=== PATIENT | female | born 1940 | race Caucasian/White ===

== ENCOUNTER 2017-12-24 09:34 | Inpatient (IN) | payer MEDICARE ==
[~2017-12-24] VITALS: Ht 166.4 cm; Wt 74.2 kg
[~2017-12-24 09:34] MED LIST: AMLO5TAB2 PO; ASPI-1012 PO; FLUT1DIS3 IH; FURO20TA4 PO; RANI-248 PO
[2017-12-24 15:25] LABS: BASOPHILS % (AUTO) 1.2 % (0.0-5.0); EOSINOPHILS % (AUTO) 12.9 % (0.0-8.0); HEMATOCRIT 40.4 % (36-48); MEAN CORPUSCULAR HEMOGLOBIN 29.6 pg (27.0-33.0); MEAN CORPUSCULAR VOLUME 86.9 fL (79-99); MONOCYTES % (AUTO) 10.6 % (3.0-13.0); NEUTROPHILS % (AUTO) 52.3 % (40.0-77.0); NUCLEATED RED BLOOD CELLS 0.1 % (0.0-0.19); PLATELET COUNT (AUTO) 316 K/uL (130-400); RED BLOOD CELL COUNT(AUTO) 4.65 MIL/uL (4.00-5.50); RED CELL DISTRIBUTION WIDTH 14.1 % (11.0-15.5); WHITE BLOOD COUNT (AUTO) 6.4 K/uL (4.8-10.8)
[2017-12-24 15:30] VITALS: BP 153/75
[2017-12-24 15:34] LABS: CREATININE 0.7 mg/dL (0.5-1.5)
[2017-12-24 15:37] LABS: INR 1.02 (0.85-1.15); PARTIAL THROMBOPLASTIN TIME 27.2 SEC (26.3-35.5); PROTHROMBIN TIME 10.7 SEC (9.6-11.6)
[2017-12-24] MEDS ORDERED: duo neb IH (16:09)
[2017-12-24] MEDS ORDERED: combivent IH (16:09)
[2017-12-24] MEDS ORDERED: breo ellipta IH (16:09)
[2017-12-24] MEDS ORDERED: LANS30CA53 PO (16:09)
[2017-12-24] MEDS ORDERED: ROSU20TA PO (16:11)
[2017-12-24] MEDS ORDERED: VALS320T16 PO (16:11)
[2017-12-24 16:19] LABS: APPEARANCE,URINE Clear (CLEAR); BILIRUBIN,URINE Negative (NEGATIVE); COLOR,URINE Yellow (YELLOW); GLUCOSE, URINE (UA) Negative (NEGATIVE); KETONES,URINE Negative (NEGATIVE); LEUKOCYTE ESTERASE ,URINE Negative (NEGATIVE); NITRATE,URINE Negative (NEGATIVE); OCCULT BLOOD,URINE Negative (NEGATIVE); PROTEIN,URINE Negative (NEGATIVE)
[2017-12-25] VITALS (25 sets, daily range): BP systolic 97–161; BP diastolic 42–99
[2017-12-25] MEDS ORDERED: WATER FOR INJECTION,STERILE 20 ML VIAL IJ ONE (08:00)
[2017-12-25] MEDS: CEFAZOLIN SODIUM 1 GM VIAL IVP ONE ×2 (08:00→13:34)
[2017-12-25] MEDS ORDERED: LACTATED RINGERS 1000ML 1,000 ML IV ONE (09:58)
[2017-12-25] MEDS ORDERED: CEFAZOLIN SODIUM 1 GM VIAL ONE ×2 (09:58→12:34)
[2017-12-25] MEDS ORDERED: ACETAMINOPHEN EXTRA STRENGTH 500 MG TABLET ONE (11:08)
[2017-12-25] MEDS ORDERED: CELECOXIB 200 MG CAP ONE (11:08)
[2017-12-25] MEDS ORDERED: OXYCODONE HCL 10 MG TAB.SR.12H PO ONE (11:08)
[2017-12-25] MEDS ORDERED: ONDANSETRON HCL 4 MG/2 ML VIAL ONE (11:58)
[2017-12-25] MEDS ORDERED: DEXAMETHASONE SOD PHOSPHATE 10MG/ML 1ML VIAL ONE (11:58)
[2017-12-25] MEDS ORDERED: LIDOCAINE PF 2% 5ML ABBOJECT ONE (11:58)
[2017-12-25] MEDS ORDERED: GLYCOPYRROLATE 0.2 MG/ML 5 ML VIAL ONE (11:58)
[2017-12-25] MEDS ORDERED: FENTANYL CITRATE PF 50 MCG/1 ML 2ML VIAL ONE ×2 (11:59→14:41)
[2017-12-25] MEDS ORDERED: MIDAZOLAM HCL 1 MG/ML 2ML VIAL ONE (11:59)
[2017-12-25] MEDS ORDERED: PROPOFOL 10 MG/ML 20ML VIAL IV ONE (11:59)
[2017-12-25] MEDS ORDERED: TEMAZEPAM 15 MG CAPSULE PO PRN (15:00)
[2017-12-25] MEDS ORDERED: ONDANSETRON HCL 4 MG/2 ML VIAL IVP PRN (15:00)
[2017-12-25] MEDS: ACETAMINOPHEN EXTRA STRENGTH 500 MG TABLET PO SCH ×2 (15:00→21:51)
[2017-12-25] MEDS ORDERED: DiphenhydrAMINE HCL 50 MG/ML VIAL IVP PRN (15:00)
[2017-12-25] MEDS ORDERED: LIDOCAINE HCL-MPF 1% 2ML VIAL IVP PRN (15:00)
[2017-12-25] MEDS ORDERED: POTASSIUM CHLORIDE 20 MEQ ERTAB PO PRN (15:00)
[2017-12-25] MEDS ORDERED: POTASSIUM CHLORIDE 20MEQ/100ML 100 ML IV PRN (15:00)
[2017-12-25] MEDS ORDERED: FERROUS FUMARATE 324 MG TABLET PO PRN (15:00)
[2017-12-25] MEDS ORDERED: POTASSIUM CHLORIDE 10% ELIXIR 20 MEQ/15 ML UDCUP PO PRN (15:00)
[2017-12-25] MEDS ORDERED: IPRATROPIUM/ALBUTEROL SULFATE 3 ML SOLUTION IH ONE (15:46)
[2017-12-25] MEDS ORDERED: MEPERIDINE-PF 25 MG/ML SYG ONE ×2 (16:04→16:14)
[2017-12-25] MEDS ORDERED: PROMETHAZINE HCL 25 MG/ML 1ML AMPULE IM ONE (16:13)
[2017-12-25] MEDS ORDERED: NALOXONE HCL 0.4 MG/1 ML ML ONE (16:36)
[2017-12-25] MEDS: SODIUM CHLORIDE 0.9% 1000ML 1,000 ML IV SCH ×2 (18:37→23:03)
[2017-12-25] MEDS ORDERED: IPRATROPIUM/ALBUTEROL SULFATE 3 ML SOLUTION IH PRN (18:45)
[2017-12-25] MEDS ORDERED: COMBIVENT IH SCH (18:45)
[2017-12-25] MEDS ORDERED: PANTOPRAZOLE SODIUM 40 MG TABLET.DR PO PRN (18:54)
[2017-12-25] MEDS: KETOROLAC TROMETHAMINE 15MG/ML IV PRN (19:53)
[2017-12-25] MEDS: CEFAZOLIN SODIUM 1 GM VIAL IVP SCH (19:58)
[2017-12-25] MEDS ORDERED: CEFAZOLIN 2GM / 50 ML 50 ML IV SCH (20:00)
[2017-12-25] MEDS: RANITIDINE HCL 15 MG/1 ML PO SCH (21:00)
[2017-12-25] MEDS: ASPIRIN 325 MG TABLET PO SCH (21:31)
[2017-12-25] MEDS: FAMOTIDINE 20MG TAB 20 MG TAB PO SCH (21:31)
[2017-12-25] MEDS: PREGABALIN 25 MG CAP PO SCH (21:31)
[2017-12-25] MEDS: ATORVASTATIN CALCIUM 40 MG TABLET PO SCH (21:31)
[2017-12-25] MEDS: OXYCODONE HCL 5 MG TAB PO PRN (21:49)
[2017-12-26] MEDS: ALBUTEROL SULFATE 0.083% 2.5 MG/3 ML INH IH SCH ×4 (00:04→18:13)
[2017-12-26] MEDS: OXYCODONE HCL 5 MG TAB PO PRN ×4 (02:49→20:03)
[2017-12-26] MEDS: CEFAZOLIN SODIUM 1 GM VIAL IVP SCH (03:27)
[2017-12-26 03:35] VITALS: BP 100/63
[2017-12-26 05:47] LABS: HEMATOCRIT 31.6 % (36-48); MEAN CORPUSCULAR HEMOGLOBIN 30.2 pg (27.0-33.0); MEAN CORPUSCULAR HGB CONC 34.1 g/dL (32.0-36.0); MEAN CORPUSCULAR VOLUME 88.6 fL (79-99); PLATELET COUNT (AUTO) 233 K/uL (130-400); RED BLOOD CELL COUNT(AUTO) 3.57 MIL/uL (4.00-5.50); RED CELL DISTRIBUTION WIDTH 14.3 % (11.0-15.5); WHITE BLOOD COUNT (AUTO) 10.4 K/uL (4.8-10.8)
[2017-12-26 05:55] LABS: CREATININE 0.8 mg/dL (0.5-1.5); POTASSIUM 3.5 mmol/L (3.5-5.1)
[2017-12-26] MEDS: BUDESONIDE 0.5 MG/2 ML INH IH SCH ×2 (06:06→18:12)
[2017-12-26] MEDS: ACETAMINOPHEN EXTRA STRENGTH 500 MG TABLET PO SCH ×3 (07:04→23:36)
[2017-12-26] MEDS ORDERED: SODIUM CHLORIDE 0.9% 500ML 500 ML IV SCH (08:15)
[2017-12-26 08:21] VITALS: BP 89/51
[2017-12-26] MEDS: AMLODIPINE BESYLATE 5 MG TAB PO SCH (09:00)
[2017-12-26] MEDS: LOSARTAN 100 MG TABLET PO SCH (09:00)
[2017-12-26] MEDS ORDERED: BREO ELLIPTA IH SCH (09:00)
[2017-12-26] MEDS: FUROSEMIDE 20 MG TABLET PO SCH (09:00)
[2017-12-26] MEDS: PREGABALIN 25 MG CAP PO SCH ×2 (09:43→20:00)
[2017-12-26] MEDS: CALCIUM CARBONATE 500 MG TABLET PO PRN (09:43)
[2017-12-26] MEDS: ASPIRIN 325 MG TABLET PO SCH ×2 (09:43→19:59)
[2017-12-26] MEDS: FAMOTIDINE 20MG TAB 20 MG TAB PO SCH ×2 (09:44→20:03)
[2017-12-26] MEDS: POLYETHYLENE GLYCOL 3350 17 GM POWD.PACK PO SCH (09:45)
[2017-12-26] MEDS: KETOROLAC TROMETHAMINE 15MG/ML IV PRN ×3 (09:46→23:36)
[2017-12-26] MEDS: SODIUM CHLORIDE 0.9% 1000ML 1,000 ML IV SCH (09:46)
[2017-12-26 11:37] VITALS: BP 115/57
[2017-12-26 16:15] VITALS: BP 99/54
[2017-12-26 19:30] VITALS: BP 128/55
[2017-12-26] MEDS: RANITIDINE HCL 15 MG/1 ML PO SCH (20:02)
[2017-12-26] MEDS: ATORVASTATIN CALCIUM 40 MG TABLET PO SCH (20:02)
[2017-12-26 23:41] VITALS: BP 135/62
[2017-12-27] MEDS: OXYCODONE HCL 5 MG TAB PO PRN ×3 (03:17→18:34)
[2017-12-27 03:40] VITALS: BP 103/59
[2017-12-27 05:29] LABS: HEMATOCRIT 27.9 % (36-48); MEAN CORPUSCULAR HEMOGLOBIN 29.4 pg (27.0-33.0); MEAN CORPUSCULAR HGB CONC 33.2 g/dL (32.0-36.0); MEAN CORPUSCULAR VOLUME 88.6 fL (79-99); PLATELET COUNT (AUTO) 220 K/uL (130-400); RED BLOOD CELL COUNT(AUTO) 3.15 MIL/uL (4.00-5.50); RED CELL DISTRIBUTION WIDTH 14.4 % (11.0-15.5); WHITE BLOOD COUNT (AUTO) 13.1 K/uL (4.8-10.8)
[2017-12-27] MEDS: KETOROLAC TROMETHAMINE 15MG/ML IV PRN (05:48)
[2017-12-27] MEDS: BUDESONIDE 0.5 MG/2 ML INH IH SCH (07:11)
[2017-12-27] MEDS: ALBUTEROL SULFATE 0.083% 2.5 MG/3 ML INH IH SCH ×3 (07:11→11:34)
[2017-12-27 07:47] VITALS: BP 130/76
[2017-12-27 07:58] LABS: CREATININE 0.9 mg/dL (0.5-1.5); POTASSIUM 3.9 mmol/L (3.5-5.1)
[2017-12-27] MEDS: PREGABALIN 25 MG CAP PO SCH (08:14)
[2017-12-27] MEDS: TRAMADOL HCL 50 MG TABLET PO PRN ×2 (08:15→15:51)
[2017-12-27] MEDS: ACETAMINOPHEN EXTRA STRENGTH 500 MG TABLET PO SCH ×2 (08:15→15:00)
[2017-12-27] MEDS: FUROSEMIDE 20 MG TABLET PO SCH (09:00)
[2017-12-27] MEDS: AMLODIPINE BESYLATE 5 MG TAB PO SCH (09:00)
[2017-12-27] MEDS: LOSARTAN 100 MG TABLET PO SCH (09:00)
[2017-12-27] MEDS: FAMOTIDINE 20MG TAB 20 MG TAB PO SCH (10:03)
[2017-12-27] MEDS: CALCIUM CARBONATE 500 MG TABLET PO PRN (10:03)
[2017-12-27] MEDS: POLYETHYLENE GLYCOL 3350 17 GM POWD.PACK PO SCH (10:03)
[2017-12-27] MEDS: ASPIRIN 325 MG TABLET PO SCH (10:03)
[2017-12-27 11:06] VITALS: BP 103/65
[2017-12-27 16:21] VITALS: BP 139/74
[2017-12-28] MEDS ORDERED: BISACODYL 10 MG SUPP.RECT RC PRN (15:00)
== END 2017-12-27 21:15 | DRG 470 ==
LOC: EDSTATUS 15:00 → DAHIP 12-25 09:25 → 4AH 12-25 16:53
PROVIDERS: ADMIT Orthopaedic Surgery; ATTEND Orthopaedic Surgery
PROC: 0SRB0JZ Replacement of Left Hip Joint with Synthetic Substitute, Open Approach (ICD-10-PCS; principal; 2017-12-25 12:05)
DX: M16.12 Unilateral primary osteoarthritis, left hip (principal); E78.00 Pure hypercholesterolemia, unspecified; E78.5 Hyperlipidemia, unspecified; M85.60 Other cyst of bone, unspecified site; I10 Essential (primary) hypertension; Z79.82 Long term (current) use of aspirin; Z88.1 Allergy status to other antibiotic agents; Z91.041 Radiographic dye allergy status; Z91.048 Other nonmedicinal substance allergy status; Z82.3 Family history of stroke; Z82.49 Family history of ischemic heart disease and other diseases of the circulatory system; Z81.1 Family history of alcohol abuse and dependence; Z80.0 Family history of malignant neoplasm of digestive organs
CPT/HCPCS: 36415; 73503; 80048; 81003; 85025; 85027; 85610; 85730; 86156; 86850; 86870; 86900; 86901; 86922; 88304; 88311; 94640; 94660; 94664; 97039; A4218; J0690; J1100; J1885; J2001; J2175; J2250; J2310; J2405; J2550; J2704; J3010; J3490; J7030; J7120

== ENCOUNTER 2019-03-27 04:24 | Emergency (ER) | payer MEDICARE ==
[~2019-03-27 04:24] MED LIST changes: -AMLO5TAB2 PO; +AMLO5TAB9 PO; +LANS30CA53 PO; -RANI-248 PO; +RANI-662 PO; +ROSU20TA23 PO; +VALS320T16 PO; +breo ellipta IH; +combivent IH; +duo neb IH
[2019-03-27] MEDS ORDERED: CLONIDINE HCL 0.1 MG TABLET ONE (05:54)
== END 2019-03-27 07:19 | disposition home or self-care (01) ==
LOC: EDH 04:24
DX: I10 Essential (primary) hypertension (principal); J43.9 Emphysema, unspecified; Z88.2 Allergy status to sulfonamides; Z91.041 Radiographic dye allergy status; Z91.048 Other nonmedicinal substance allergy status

== ENCOUNTER 2019-08-26 08:09 | Emergency (ER) | payer MEDICARE ==
[2019-08-26] MEDS ORDERED: DILTIAZEM HCL 5 MG/ML 10 ML VIAL IV ONE (08:43)
[2019-08-26 08:47] LABS: BASOPHILS % (AUTO) 0.5 % (0.0-5.0); EOSINOPHILS % (AUTO) 6.2 % (0.0-8.0); HEMATOCRIT 41.5 % (36-48); LYMPHOCYTES % (AUTO) 9.2 % (21.0-51.0); MEAN CORPUSCULAR HGB CONC 31.1 g/dL (32.0-36.0); MEAN CORPUSCULAR VOLUME 90.2 fL (79-99); MONOCYTES % (AUTO) 6.4 % (3.0-13.0); NEUTROPHILS % (AUTO) 77.2 % (40.0-77.0); PLATELET COUNT (AUTO) 325 K/uL (130-400); RED CELL DISTRIBUTION WIDTH 14.7 % (11.0-15.5); WHITE BLOOD COUNT (AUTO) 10.8 K/uL (4.8-10.8)
[2019-08-26 09:02] LABS: CARBON DIOXIDE 31 mmol/L (21-32); CHLORIDE 101 mmol/L (101-111); CREATININE 0.8 mg/dL (0.5-1.5); GLOMERULAR FILTR. RATE CALC 73 mL/min (>60); GLUCOSE,RANDOM 134 mg/dL (70-105); SODIUM SERUM 140 mmol/L (136-145); UREA NITROGEN, BLOOD 9 mg/dL (7-18)
[2019-08-26 09:15] LABS: ALANINE AMINOTRANSFERASE 40 U/L (12-78); ALBUMIN 3.1 g/dL (3.5-5.0); ASPARTATE AMINOTRANSFERASE 47 U/L (10-37); BILIRUBIN,TOTAL 0.5 mg/dL (0.2-1.0); CREATINE KINASE, TOTAL 36 U/L (21-232); MYOGLOBIN 47 ng/mL (10-92); TROPONIN I < 0.04 ng/mL (0.00-0.06)
[2019-08-26] MEDS ORDERED: DILTIAZEM HCL 125 MG/25 ML VIAL IV ONE (10:09)
[2019-08-26] MEDS ORDERED: IPRATROPIUM/ALBUTEROL SULFATE 3 ML SOLUTION IH ONE (11:54)
[2019-08-26] MEDS ORDERED: ONDANSETRON HCL 4 MG/2 ML VIAL ONE (12:00)
[2019-08-26] MEDS ORDERED: DILTIAZEM HCL 60 MG TABLET ONE (14:51)
== END 2019-08-26 17:19 | disposition home or self-care (01) ==
LOC: EDH 08:09
DX: I48.0 Paroxysmal atrial fibrillation (principal); J44.9 Chronic obstructive pulmonary disease, unspecified; I10 Essential (primary) hypertension; Z87.891 Personal history of nicotine dependence; Z98.890 Other specified postprocedural states; Z91.041 Radiographic dye allergy status; Z91.048 Other nonmedicinal substance allergy status; Z88.2 Allergy status to sulfonamides
CPT/HCPCS: 36415; 71045; 80053; 82550; 83735; 83874; 83880; 84484 ×2; 85025; 93005 ×2; 94640; 96374; 96375; 99285; J2405; J3490 ×2

== ENCOUNTER → 2020-04-20 | Outpatient (CLI) | payer MEDICARE | END | disposition home or self-care (01) | LOC: SHCH 07:48 | PROVIDERS: ATTEND Internal Medicine Cardiovascular Disease | DX: R60.9 Edema, unspecified (principal) | CPT/HCPCS: 93970 ==

== ENCOUNTER → 2020-06-27 | Outpatient (CLI) | payer MEDICARE ==
[~2020-06-27] MED LIST changes: +AMLO-257 PO; -AMLO5TAB9 PO
== END | disposition home or self-care (01) ==
LOC: SHCH 07:37
PROVIDERS: ATTEND Internal Medicine Cardiovascular Disease
DX: I73.9 Peripheral vascular disease, unspecified (principal)
CPT/HCPCS: 93922

== ENCOUNTER → 2023-04-03 | Outpatient (CLI) | payer MEDICARE | END | disposition home or self-care (01) | LOC: SHCH 08:21 | PROVIDERS: ATTEND Internal Medicine Cardiovascular Disease | DX: I71.40 Abdominal aortic aneurysm, without rupture, unspecified (principal) | CPT/HCPCS: 93978 ==